=== PATIENT | female | born 1950 | race Caucasian/White ===

== ENCOUNTER 2021-03-26 11:38 | Emergency (ER) | payer MEDICARE ==
[~2021-03-26] VITALS: Ht 165.1 cm; Wt 73.0 kg
[2021-03-26 12:23] VITALS: BP 162/92
[2021-03-26] MEDS ORDERED: SODIUM CHLORIDE FLUSH 10ML SYR IVF ONE (12:30)
--- NOTE | 2021-03-26 12:33 | NUR ---
PT TO ROOM FROM TRIAGE, CHANGED INTO GOWN, ALL MONITORS IN PLACE. PT C/O BLOOD CLOT PER MD ON 03/14. PT HAD R-SHOULDER SURGERY ON MARCH 13. PT C/O FEELING DIZZY, LIGHT HEADED AND GENERALIZED MALAISE. CALL LIGHT WITHIN REACH, BED IN LOWEST POSITION, BED RAILS UP X2. COMFORT MEASURES PROVIDED.
[2021-03-26 13:03] LABS: BASOPHILS % (AUTO) 1 % (0-1); EOSINOPHILS % (AUTO) 1 % (1-7); LYMPHOCYTES % (AUTO) 31 % (22-44); MEAN CORPUSCULAR HEMOGLOBIN 28.8 pg (27.0-34.8); MEAN CORPUSCULAR HGB CONC 33.5 g/dL (32.4-35.8); MEAN PLATELET VOLUME 7.6 fL (7.4-10.4); MONOCYTES % (AUTO) 5 % (2-9); NEUTROPHILS % (AUTO) 62 % (42-75); PLATELET COUNT 333 x10^3/uL (130-400); RED BLOOD COUNT 5.06 x10^6/uL (3.82-5.3); RED CELL DISTRIBUTION WIDTH 14.4 % (9.6-15.2)
[2021-03-26 13:10] LABS: ALBUMIN 3.7 g/dL (3.4-5.0); ANION GAP 6 mmol/L (5-15); CALCIUM 9.5 mg/dL (8.5-10.1); CHLORIDE 108 mmol/L (98-107)
--- NOTE | 2021-03-26 13:10 | NUR ---
MULTIPLE PIV ATTEMPTS. ERP AWARE
[2021-03-26 13:17] LABS: ALANINE AMINOTRANSFERASE 45 U/L (12-78); ALKALINE PHOSPHATASE 150 U/L (45-117); BILIRUBIN,TOTAL 0.4 mg/dL (0.2-1.0); CREATININE 0.74 mg/dL (0.55-1.02); TOTAL PROTEIN 7.3 g/dL (6.4-8.2); TROPONIN I < 0.015 ng/mL (0.000-0.045)
--- NOTE | 2021-03-26 14:26 | NUR ---
Task RN: right forearm 18 ga placed for cta
--- NOTE | 2021-03-26 14:32 | NUR ---
PT TO CT
--- NOTE | 2021-03-26 14:49 | NUR ---
PT BACK FROM CT
[2021-03-26] MEDS ORDERED: OMNIPAQUE 350 MG/ML, 75ML BOTTLE ONE (15:08)
--- NOTE | 2021-03-26 16:15 | NUR ---
Patient given discharge instructions and they have confirmed that they understand the instructions. Patient ambulatory with steady gait.
== END 2021-03-26 16:16 | disposition home or self-care (01) ==
LOC: ED 16:05
DX: R55 Syncope and collapse (principal); R42 Dizziness and giddiness; R11.0 Nausea; R94.31 Abnormal electrocardiogram [ECG] [EKG]; Z79.01 Long term (current) use of anticoagulants
CPT/HCPCS: 36415; 71275; 80053; 84484; 85025; 93005; 99285; Q9967